=== PATIENT | female | born 2000 | race Caucasian/White ===

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

== ENCOUNTER 2018-03-17 20:21 | Emergency (ER) | payer BC ==
[~2018-03-17] VITALS: Ht 162.6 cm; Wt 98.0 kg
[~2018-03-17 20:21] MED LIST: KEFLEX500 MG PO; ULTRAM50 MG PO
[2018-03-17 21:15] LABS: APPEARANCE SL.HAZY ((CLEAR)); BILIRUBIN NEGATIVE; BLOOD NEGATIVE; COLOR YELLOW ((YELLOW)); GLUCOSE (STRIP) NEGATIVE; KETONES NEGATIVE; LEUKOCYTES NEGATIVE; NITRITE NEGATIVE; PROTEIN (STRIP) NEGATIVE; SPECIFIC GRAVITY 1.015 (1.000-1.030); UROBILINOGEN 0.2 MG/DL (0.2-1.0)
[2018-03-17 21:18] LABS: BACTERIA RARE /HPF; EPITHELIAL CELLS 1+ /HPF; MUCUS TRACE /LPF; RED BLOOD CELLS 0-5 /HPF (0-5); UCUL ADDED? NO; WHITE BLOOD CELLS 0-5 /HPF (0-5)
[2018-03-17 22:40] LABS: HEMOGLOBIN 13.6 G/DL (11.9-15.5); MCH 29.6 PG (29.0-34.0); PLATELET COUNT 271 K/uL (156-360); RBC DIS.WIDTH-SD 38.4 % (39-53); WHITE BLOOD COUNT 10.7 K/uL (4.1-10.2)
[2018-03-17 22:52] LABS: CHLORIDE 107 mEq/L (99-109); POTASSIUM 3.9 mEq/L (3.7-5.4); SODIUM 142 mEq/L (136-147)
[2018-03-17 22:54] LABS: GLUCOSE 95 mg/dL (70-99)
[2018-03-17 22:57] LABS: CREATININE 0.8 mg/dL (0.6-1.3); GFR ESTIMATE (CALCULATED) > 59 mL/min/
[2018-03-17 22:58] LABS: UREA NITROGEN (BUN) 12 mg/dL (9-23)
[2018-03-17 23:05] LABS: QUANTITATIVE HCG < 4.0 MIU/ML
[2018-03-18] MEDS ORDERED: PYRIDIUM100 MG PO (00:17)
[2018-03-18] MEDS ORDERED: NORCO 5/3251 TABLET PO (00:17)
[2018-03-18 00:41] VITALS: BP 112/56
== END 2018-03-18 00:44 | disposition home or self-care (01) ==
LOC: EME 20:21
PROVIDERS: Physician Assistant
DX: R30.0 Dysuria (principal); R10.32 Left lower quadrant pain; Z87.440 Personal history of urinary (tract) infections
CPT/HCPCS: 74176; 80048; 81003; 84702; 85027; 99281; 99285